=== PATIENT | male | born 1985 | race Caucasian/White ===

== ENCOUNTER 2016-04-26 12:37 | Emergency (ER) ==
[2016-04-26] MEDS ORDERED: LOPRESSOR IV ONE ×2 (13:50→17:02)
--- NOTE | 2016-04-26 14:20 | Diag Imaging Result Document ---
PROCEDURE NAME: FOOT COMPLETE RIGHT - 04/26/2016 RIGHT FOOT, THREE VIEWS: FINDINGS: There is a small inferior calcaneal bone spur. No fracture. No dislocation. IMPRESSION: No acute bony injury.
--- NOTE | 2016-04-26 14:33 | PROVIDER DOCUMENTATION ---
HPI-Musculoskeletal Pain/Inj - GENERAL Source: patient - HX OF PRESENT ILLNESS-MUSKULOSKELTAL Quality of Pain: reports: aching Severity in ED: moderate, severe Onset/Duration: abrupt, 6 days ago Timing: still present, getting worse Modifying Factors: improves with: rest. worse with: movement, palpation, other (weight bearing) Any recent injury?: Yes (Pt reports twisting his toe with his hands in order to "pop" it.) Locality of Occurance: Home Similar Symptoms Previously?: No Recently seen or treated by another doctor?: No - LOWER EXTREMITY PAIN/INJURY Lower Extremities Pain: 1st toe: right (erythematous, swollen, tender) <Aubrie Cowan - Last Filed: 04/26/16 15:18> <Leelee Kingston Jr - Last Filed: 04/26/16 18:32> - GENERAL Chief Complaint: Extremity Pain Stated Complaint: EXTREMITY PAIN Time Seen by Provider: 04/26/16 13:06 - HX OF PRESENT ILLNESS-MUSKULOSKELTAL Nature of Presenting Problem: 30 yo WM presents to ED with cc of pain, swelling, and redness in his R great toe. Pt reports "popping" his toe 6 days ago, and his pain started after that. Pt denies any other injury. Pt describes the pain as sharp. He denies any radiation. Pt states he has a hard time walking on it. Upon arrival to ED, pt has elevated BP. He is otherwise in no apparent distress. (Aubrie Cowan) Review of Systems - Adult - REVIEW OF SYSTEMS - ADULT Constitutional: reports: no symptoms reported. denies: chills, fever Eyes: reports: no symptoms reported. denies: blurred vision, double vision Ears, Nose, Mouth & Throat: reports: no symptoms reported. denies: ear pain, sinus problem Cardiovascular: reports: no symptoms reported. denies: chest pain, palpitations Respiratory: reports: no symptoms reported. denies: cough, dyspnea on exertion Gastrointestinal: reports: no symptoms reported. denies: abdominal pain, difficulty swallowing Genitourinary: reports: no symptoms reported. denies: dysuria, flank pain Musculoskeletal: reports: other (R great toe pain, redness, swelling) Integumentary: reports: no symptoms reported. denies: hives, itching Neurological: reports: no symptoms reported. denies: headache/migraines, loss of balance, paresthesia Psychiatric: reports: no symptoms reported. denies: anxiety, depression Endocrine: reports: no symptoms reported. denies: change in skin pigment, goiter Hematologic/Lymphatic: reports: no symptoms reported. denies: blood clots, low blood count Allergic/Immunologic: reports: no symptoms reported. denies: allergic rhinitis , eczema All Other Systems: Reviewed and Negative <Aubrie Cowan - Last Filed: 04/26/16 15:18> Past History - Adult - PAST MEDICAL HISTORY-ADULT Review of Records: reports: Old Records Reviewed, Nursing Assessment Review, Medications Reviewed Major Childhood Illnesses: reports: denies history Cardiovascular: reports: HTN Respiratory: reports: asthma Gastrointestinal: reports: denies history Obstetrical/Gynecological: reports: denies history Genitourinary: reports: denies history Musculoskeletal: reports: denies history Neurological: reports: denies history Endocrine/Immune: reports: denies history Other Conditions: reports: denies history - PRIOR SURGERIES/PROCEDURES Surgical/Procedure History: reports: appendectomy - IMMUNIZATION STATUS Childhood Immunizations: See Nurse Assessment Flu Vaccine: See Nurse Assessment - FAMILY HISTORY Family History: reviewed, not pertinent - SOCIAL HISTORY Smoking: cigarettes, less than 1 pack/day Provider spent 3-5 mins advising pt. on dangers of tobacco.: Discussed manners to quit use, and f/u contacts for add'l counseling. <Aubrie Cowan - Last Filed: 04/26/16 15:18> Physical Exam-Injury Related - Physical Exam-Injury Related Initial Vital Signs Reviewed: Yes General Appearance: appears well, alert, no apparent distress Eyes: PERRL/EOMI, pink conjunctivae Head, Ears, Nose, Mouth & Throat: normocephalic/atraumatic, moist mucous membranes Neck: full range of motion, supple Respiratory: chest non-tender, lungs clear, normal breath sounds Cardiovascular: normal peripheral pulses, regular rate, rhythm, no edema Abdominal Exam: non tender, soft Lymphatic: no adenopathy Back Exam: normal inspection, no vertebral tenderness Extremity: normal range of motion, erythema (R great toe area), swelling (R great toe area), tenderness (R great toe area). negative: normal gait Integumentary: normal color, warm/dry, erythema (R great toe area), tenderness ( R great toe area) Neurologic: grossly normal, no motor/sensory deficits Psych/Mental Status: normal mood/affect, normal thought content, normal thought process, oriented x 3 <Aubrie Cowan - Last Filed: 04/26/16 15:18> Progress - EKG 1 Time of EKG reading by physician:: 13:00 EKG Read and Signed by:: Leelee Kingston Jr EKG Interpretation (*Must complete 3 of following elements*): Abnormal (LVH with repolarization abnormality. cannot rule out septal infarct, age undetermined. Lateral infarct, age undetermined.) Rate: 104 Rhythm: Sinus tachycardia [place]: normal QRS: LVH (with repolarization abnormality) - XRAY 1 XRAY: Right XRAY Study: Foot Impression: Normal (Small inferior calcaneal bone spur) XRAY Interpretation: NAD (per Rupal, radiology) <Aubrie Cowan - Last Filed: 04/26/16 15:18> - XRAY 2 XRAY Study: Chest Impression: Normal XRAY Interpretation: borderline enlarged heart <Leelee Kingston Jr - Last Filed: 04/26/16 18:32> Departure <Aubrie Cowan - Last Filed: 04/26/16 15:18> - Departure Time of Disposition Order: 18:27 Certified Medical Emergency: Emergent <Leelee Kingston Jr - Last Filed: 04/26/16 18:32> - Departure DIAGNOSIS: Malignant hypertension, Tobacco abuse Hyperglycemia due to type 2 diabetes mellitus Qualifiers: Diabetes mellitus nursing home insulin use: without nursing home use Qualified Code(s ): E11.65 - Type 2 diabetes mellitus with hyperglycemia Disposition: HOME 01 Condition: Good Additional Instructions: PT TO FOLLOW UP WITH PCP IN 1-2 DAYS. IF NO PCP, PT TO USE PHYSICIAN REFERRAL LINE TO ESTABLISH CARE ED Follow Up Instructions: You have been treated by a care provider in the Emergency Department. These instructions are being provided to you so you can have an understanding of how to care for yourself upon discharge. Upon discharge from the Emergency Department, you are responsible for making arrangements for follow-up care by a physician of your choice. Take all prescribed medications as directed. Return to the Emergency Department immediately for any new or worsening symptoms. You may call the Physician Referral phone number at [phone] to obtain a list of Physicians who are taking new patients. Prescriptions: Metformin [Glucophage] 850 mg PO DAILY #30 tablet Labetalol [Trandate] 100 mg PO BID #60 tablet Referrals: Jovanna Fiore MD [STAFF PHYSICIAN] - Forms: Return to School/Parent Work Attestation - Scribe Verification/Attestation Scribe:: Aubrie Cowan Acting as Scribe for:: Leelee Kingston Jr Scribe documention review:: This chart was documented by a scribe and accurately reflects the service the provider performed and the decisions made by the provider. - Physician/ MICHAEL Attestation Patient care was provided by Advanced Practice Provider:: No <Aubrie Cowan - Last Filed: 04/26/16 15:18> Physician Attestation
[2016-04-26] MEDS ORDERED: APRESOLINE IV ONE (14:54)
[2016-04-26] MEDS ORDERED: PRINIVIL PO ONE (14:55)
[2016-04-26] MEDS ORDERED: HYDROCHLOROTHIAZIDE PO ONE (14:55)
[2016-04-26] MEDS ORDERED: HYDROCHLOROTHIAZIDE ONE (15:11)
[2016-04-26] MEDS ORDERED: CATAPRES PO ONE (16:02)
--- NOTE | 2016-04-26 16:32 | EKG Report ---
Test Performed on : 04/26/2016 1:00:34 PM Test Reason : malignant hypertensive Blood Pressure : / mmHG Vent. Rate : 104 BPM Atrial Rate : 104 BPM P-R Int : 144 ms QRS Dur : 102 ms QT Int : 348 ms P-R-T Axes : 059 -20 092 degrees QTc Int : 457 ms Sinus tachycardia. Left ventricular hypertrophy with repolarization abnormality Cannot rule out Septal infarct (cited on or before 10-SEP-2012) Lateral infarct , age undetermined Abnormal ECG When compared with ECG of 11-SEP-2012 06:38, Questionable change in initial forces of Septal leads Nonspecific T wave abnormality no longer evident in Inferior leads Unconfirmed Result
[2016-04-26 16:54] LABS: MANUAL DIFF NEEDED? NO
[2016-04-26 16:58] LABS: BASO% 0.4 % (0.0-0.8); EOS# 0.11 X1000 (0.0-0.7); EOS% 1.3 % (0.0-10.0); HEMATOCRIT 45.4 % (42.0-52.0); HEMOGLOBIN 15.5 g/dL (14.0-18.0); IMM GRAN# 0.02 X1000 (0.0-0.04); IMM GRAN% 0.2 % (0.0-0.5); LYMPH# 1.83 X1000 (1.2-3.4); LYMPH% 21.9 % (20.5-51.1); MCH 28.7 PG (27-31); MCHC 34.1 g/dL (33-37); MCV 84.1 FL (81-99); MONO# 0.89 X1000 (0.11-0.59); MONO% 10.7 % (1.7-9.3); MPV 11.3 FL (7.4-10.4); NEUT% 65.5 % (42.2-75.2); PLT 243 X1000 (130-400)
[2016-04-26 17:00] LABS: AGAP 13; ALBUMIN 4.9 g/dL (3.5-5.0); ALKALINE PHOSPHATASE 79 U/L (32-122); BUN 17 mg/dL (8-22); CALCIUM 10.2 mg/dL (8.8-10.2); CHLORIDE 94 mmol/L (98-107); COSMO 288; GOT 13 U/L (10-34); GPT 27 U/L (10-44); SODIUM 133 mmol/L (136-145); TCO2 26 mmol/L (25-35)
[2016-04-26] MEDS ORDERED: NS 1,000 ML IV ONE (17:04)
[2016-04-26] MEDS ORDERED: HUMULIN R IV ONE (17:05)
[2016-04-26] MEDS ORDERED: HUMULIN R DOSE (PARKWAY) ONE (17:21)
[2016-04-26 17:27] LABS: HEMOGLOBIN A1C 8.5 % (4.8-6.0)
--- NOTE | 2016-04-26 17:33 | Diag Imaging Result Document ---
PROCEDURE NAME: CHEST-2 VIEWS - 04/26/2016 FRONTAL AND LATERAL CHEST, 2 VIEWS. COMPARISON: Compared to 09/10/2014. FINDINGS: Poor inspiratory effort. The heart is borderline mildly prominent. The vessels are not distended. No pneumonia. No pleural effusions. IMPRESSION: Poor inspiratory effort with borderline mildly prominent heart, otherwise negative exam.
[2016-04-26 17:38] LABS: BE 0.8 mmoll (-3.0-3.0); BLOOD TYPE ARTERIAL; DRAW SITE R RADIAL; O2(CT) 19.4 mL/dL (15.0-23.0); PCO2(98.6) 35 mmHg (35-45); PO2(98.6) 55 mmHg (60-100); SAMPLE BLOOD; SAO2 93.2 % (95.0-100.0); THB 15.2 g/dL (11.5-17.4); pH(98.6) 7.45 (7.35-7.45)
[2016-04-26 17:42] LABS: ALLEN TEST YES; MODALITY ROOM AIR
[2016-04-26 17:53] LABS: UR AMPHETAMINES QUAL NONE DETECTED (NONE DETECT); UR BARBITUATES QUAL NONE DETECTED (NONE DETECT); UR BENZODIAZEPIN QUAL NONE DETECTED (NONE DETECT); UR CANNABINOIDS QUAL NONE DETECTED (NONE DETECT); UR COCAINE QUAL NONE DETECTED (NONE DETECT); UR MDMA QUAL NONE DETECTED (NONE DETECT); UR METHADONE QUAL NONE DETECTED (NONE DETECT); UR METHAMPHETAMINE QUAL NONE DETECTED (NONE DETECT); UR OPIATES QUAL NONE DETECTED (NONE DETECT); UR OXYCODONE QUAL NONE DETECTED (NONE DETECT); UR PCP QUAL NONE DETECTED (NONE DETECT); UR TCA QUAL NONE DETECTED (NONE DETECT)
[2016-04-26 17:56] VITALS: BP 177/116
== END 2016-04-26 19:02 | disposition home or self-care (01) ==
LOC: P.ED 12:37
DX: E11.65 Type 2 diabetes mellitus with hyperglycemia (principal); I10 Essential (primary) hypertension; R94.31 Abnormal electrocardiogram [ECG] [EKG]; M79.674 Pain in right toe(s); L53.9 Erythematous condition, unspecified; R22.41 Localized swelling, mass and lump, right lower limb; F17.210 Nicotine dependence, cigarettes, uncomplicated; Z71.6 Tobacco abuse counseling
CPT/HCPCS: 71020; 80053; 80305; 82009; 82805; 82948; 83036; 84484; 85025; 93005; 96361; 96374; 96375; 96376; J0360; J1815